=== PATIENT | female | born 1970 | race Caucasian/White ===

== ENCOUNTER 2019-10-13 14:42 | Outpatient (CLI) | payer OTHER, SELFPAY ==
--- NOTE | ~2019-10-13 | XR_ITS ---
EXAMINATION: XR chest 2V DATE: 10/13/2019 15:07 INDICATION: Fever and cough. TECHNIQUE: Frontal and lateral views of the chest were obtained. COMPARISON: Chest 2 views 09/16/2009 FINDINGS: There is mild scarring at the lung apices. No pleural effusion or pneumothorax. The heart s ize is normal. IMPRESSION: 1. Mild scarring at the lung apices. Reviewed, dictated and finalized at location A. WINDER
== END 2019-10-13 14:43 | disposition home or self-care (01) ==
LOC: CHSLAB 14:48
PROVIDERS: PCP Nurse Practitioner Family; Visit Provider Nurse Practitioner Family
DX: R50.9 Fever, unspecified (principal)
CPT/HCPCS: 71046; 87086

== ENCOUNTER 2020-05-07 07:13 | Outpatient (CLI) | payer OTHER, SELFPAY ==
[2020-05-10 05:53] LABS: FSH 32.6 mIU/mL (***)
[2020-05-12 23:57] LABS: Estradiol, Ultrasensitive 32 pg/mL
== END 2020-05-07 07:14 | disposition home or self-care (01) ==
LOC: CHSLAB 07:19
PROVIDERS: PCP Nurse Practitioner Family
DX: N95.1 Menopausal and female climacteric states (principal)
CPT/HCPCS: 36415; 82670; 83001

== ENCOUNTER 2020-07-14 14:07 | Outpatient (CLI) | payer OTHER, SELFPAY ==
--- NOTE | ~2020-07-14 | US_ITS ---
EXAMINATION: US venous doppler LE RT DATE: 07/14/2020 15:02 INDICATION: Right lower limb pain TECHNIQUE: Grayscale ultrasound images without and with compression and Doppler ultrasound images of the right lower extremity veins were obtained. COMPARISON: None. FINDINGS: The visualized portions of right common femoral vein, profunda (deep) femoral vein, femoral vein, pop liteal vein, peroneal trunk, posterior tibial veins, peroneal veins, gastrocnemius vein and greater s aphenous vein outflow are patent. IMPRESSION: 1. No deep venous thrombosis in the right lower limb. Reviewed, dictated and finalized at location A. OR ENGINEERING TECHNICIAN
[2020-07-14 14:31] LABS: D Dimer 0.37 mg/L (0.19-0.50)
== END 2020-07-14 14:08 | disposition home or self-care (01) ==
PROVIDERS: PCP Nurse Practitioner Family; Visit Provider Nurse Practitioner Family
DX: M79.661 Pain in right lower leg (principal); R60.0 Localized edema
CPT/HCPCS: 36415; 85380; 93971

== ENCOUNTER 2020-07-25 09:13 | Outpatient (CLI) | payer OTHER, SELFPAY ==
[2020-07-26 19:47] LABS: SARS-CoV-2 RNA PCR Negative
== END 2020-07-25 09:14 | disposition home or self-care (01) ==
LOC: CHSLAB 09:14
PROVIDERS: PCP Nurse Practitioner Family; Visit Provider Nurse Practitioner Family
DX: Z20.828 Contact with and (suspected) exposure to other viral communicable diseases (principal)
CPT/HCPCS: 87635; C9803; U0003

== ENCOUNTER 2021-02-16 07:51 | Outpatient (CLI) | payer OTHER, SELFPAY ==
--- NOTE | ~2021-02-16 | US_ITS ---
EXAMINATION:US venous doppler LE RT INDICATION:Right lower extremity swelling TECHNIQUE: Multiple grayscale, color flow and Doppler images of the right lower extremity deep venous systems were obtained and reviewed. COMPARISON:No prior studies for comparison. FINDINGS: The common femoral, superficial femoral and popliteal veins demonstrate normal respiratory variation, augmentation and compressibility. Color flow is also seen within the posterior tibial, pe roneal, greater saphenous and profunda veins. IMPRESSION: 1: No lower extremity deep venous thrombosis. Reviewed, dictated and finalized at location B.
== END 2021-02-16 07:52 | disposition home or self-care (01) ==
LOC: CHSIMG 07:52
PROVIDERS: PCP Nurse Practitioner Family; Visit Provider Nurse Practitioner Family
DX: M79.89 Other specified soft tissue disorders (principal)
CPT/HCPCS: 93971

== ENCOUNTER 2021-09-06 12:38 | Outpatient (CLI) | payer OTHER, SELFPAY ==
--- NOTE | ~2021-09-06 | US_ITS ---
EXAMINATION: US venous doppler [facility] DATE: 09/06/2021 13:08 INDICATION: Left lower limb pain. Possible Sanchez's cyst TECHNIQUE: Grayscale ultrasound images without and with compression and Doppler ultrasound images of the left lower extremity veins were obtained. COMPARISON: None. FINDINGS: The visualized portions of left common femoral vein, profunda (deep) femoral vein, femoral vein, popl iteal vein, peroneal veins, posterior tibial veins, gastrocnemius vein and greater saphenous vein out flow are patent. No Sanchez's cyst or other abnormal masses or fluid collections identified at the left popliteal fossa. IMPRESSION: 1. No deep venous thrombosis or evident Sanchez's cyst in the left lower limb. Reviewed, dictated and finalized at location A. ICAL BIOCHEMIST
== END 2021-09-06 12:39 | disposition home or self-care (01) ==
LOC: CHSIMG 12:41
PROVIDERS: PCP Nurse Practitioner Family; Visit Provider Nurse Practitioner Family
DX: M25.562 Pain in left knee (principal)
CPT/HCPCS: 93971

== ENCOUNTER 2021-11-27 13:11 | Outpatient (CLI) | payer OTHER, SELFPAY ==
--- NOTE | ~2021-11-27 | MM_ITS ---
EXAMINATION: MM screening lexi BI w bernard HISTORY: Screening mammogram TECHNIQUE: Craniocaudal and mediolateral oblique 3-D tomosynthesis images were obtained and synthetic 2-D images were generated. CAD analysis was submitted and interpreted. COMPARISON: No prior mammogram is available for comparison at this institution. BREAST PARENCHYMAL COMPOSITION: The breasts are heterogeneously dense, which may obscure small masses . FINDINGS: There is no evidence of suspicious mass, calcification, or architectural distortion to sugg est malignancy in either breast. There has been no suspicious interval change. IMPRESSION: 1. No mammographic evidence of malignancy. 2. Recommend routine screening mammography in one year. BI-RADS Category 1: Negative Reviewed, dictated and finalized at location A.
== END 2021-11-27 13:12 | disposition home or self-care (01) ==
LOC: CHSIMG 13:13
PROVIDERS: PCP Nurse Practitioner Family; Visit Provider Nurse Practitioner Family
DX: Z12.31 Encounter for screening mammogram for malignant neoplasm of breast (principal)
CPT/HCPCS: 77063; 77067

== ENCOUNTER 2021-12-01 12:17 | Outpatient (CLI) | payer OTHER, SELFPAY ==
--- NOTE | ~2021-12-01 | US_ITS ---
EXAMINATION: US soft tissue head and neck DATE: 12/01/2021 12:36 INDICATION: Localized swelling, mass and lump at the neck TECHNIQUE: Multiple grayscale and Doppler ultrasound images of the region of concern at the anterior midline of the neck were obtained. COMPARISON: None FINDINGS: 9 mm rim calcified right thyroid nodule. There also appears to be an 8 x 5 mm solid exophytic nodule arising from the anterior margin of the thyroid isthmus. Normal-sized right jugular chain lymph node identified which measures 4 mm in maximal short axis diameter. No other abnormal masses or fluid denis ections identified. IMPRESSION: 1. A couple likely benign subcentimeter nodules at the right thyroid lobe and thyroid isthmus. No oth er abnormal masses, fluid collections or pathologically enlarged lymphadenopathy. Reviewed, dictated and finalized at location A. IMPRESSION: 1. A couple likely benign subcentimeter nodules at the right thyroid lobe and t hyroid isthmus. No other abnormal masses, fluid collections or pathologically e nlarged lymphadenopathy.
== END 2021-12-01 12:18 | disposition home or self-care (01) ==
LOC: CHSIMG 12:19
PROVIDERS: PCP Nurse Practitioner Family; Visit Provider Nurse Practitioner Family
DX: R22.1 Localized swelling, mass and lump, neck (principal)
CPT/HCPCS: 76536

== ENCOUNTER 2021-12-06 07:20 | Outpatient (CLI) | payer OTHER, SELFPAY ==
[2021-12-06 07:32] LABS: Basophils Absolute Auto 0.07 K/mm3 (0.00-0.10); Basophils Percent Auto 1.2 % (0.0-1.0); Eosinophils Absolute Auto 0.21 K/mm3 (0.02-0.50); Eosinophils Percent Auto 3.7 % (1.0-6.0); Hematocrit 42.7 % (35.0-49.0); Immature Granulocyte Absolute 0.04 K/mm3 (0.00-0.00); Immature Granulocyte Percent A 0.7 % (0.0-0.0); Lymphocytes Absolute Auto 2.32 K/mm3 (1.10-4.50); Lymphocytes Percent Auto 41.2 % (18.0-42.0); Mean Corpuscular HGB Conc 32.8 g/dL (32.0-36.0); Mean Corpuscular Hemoglobin 29.7 pg (27.0-31.0); Mean Corpuscular Volume 90.5 fL (78.0-102.0); Mean Platelet Volume 10.2 fl (9.2-11.8); Monocytes Absolute Auto 0.43 K/mm3 (0.10-0.90); Monocytes Percent Auto 7.6 % (2.0-11.0); Neutrophils Absolute Auto 2.6 K/mm3 (1.7-7.2); Neutrophils Percent Auto 45.6 % (50.0-70.0); Platelet Count Result 267 K/mm3 (150-420); Red Blood Count 4.72 M/mm3 (4.20-5.40); Red Cell Distribution Width 12.1 % (11.6-14.4); White Blood Count 5.6 K/mm3 (4.8-10.8)
[2021-12-06 08:10] LABS: Alanine Aminotransferase 22 U/L (14-59); Albumin Level 4.4 g/dL (3.4-5.0); Alkaline Phosphatase 62 U/L (46-116); Anion Gap 7 mmol/L (8-16); Aspartate Amino Transferase 12 U/L (15-37); Bilirubin,Total 0.9 mg/dL (0.00-1.00); Blood Urea Nitrogen 17 mg/dL (7-18); Calcium 9.5 mg/dL (8.5-10.1); Carbon Dioxide 32 mmol/L (21-32); Chloride 103 mmol/L (98-108); Cholesterol 146 mg/dL (0-200); Estimated Glomerular Filt Rate 57; Glucose 100 mg/dL (70-99); HDL Direct 53 mg/dL (40-60); LDL Cholesterol Calculated 75 mg/dL (<130); Magnesium 1.9 mg/dL (1.8-2.4); Osmolality Calculated 295 mOsm/kg (285-295); Sodium 142 mmol/L (136-145); Thyroid Stimulating Hormone 2.21 uIU/mL (0.36-3.74); Total Protein 7.4 g/dL (6.4-8.2); Triglycerides 92 mg/dL (0-150)
[2021-12-12 14:05] LABS: Vitamin D 25 Hydroxy 26 ng/mL (30-100)
[2021-12-13 21:06] LABS: Estradiol, Ultrasensitive 6 pg/mL
== END 2021-12-06 07:21 | disposition home or self-care (01) ==
LOC: CHSLAB 07:22
PROVIDERS: PCP Nurse Practitioner Family; Visit Provider Nurse Practitioner Family
DX: R63.5 Abnormal weight gain (principal); E83.42 Hypomagnesemia
CPT/HCPCS: 36415; 80053; 80061; 82306; 82670; 83735; 84443; 85025

== ENCOUNTER 2022-10-26 07:53 | Outpatient (CLI) | payer OTHER, SELFPAY ==
[2022-10-26 14:50] LABS: Troponin I 5.4 ng/L (0.00-60.4)
[2022-10-26 14:57] LABS: Thyroid Stimulating Hormone Reflex 1.17 u/IU/mL (0.36-3.74)
[2022-10-26 15:02] LABS: CRP < 0.5 mg/dL (0.0-0.9)
[2022-10-30 11:07] LABS: Gliadin AB, IgG <1.0 U/mL (<15.0); TTG IGA AB <1.0 U/mL (<15.0)
[2022-10-30 18:18] LABS: Lactoferrin, Stool Negative (Negative)
== END 2022-10-26 07:54 | disposition home or self-care (01) ==
PROVIDERS: Family Medicine; PCP Nurse Practitioner Family; Visit Provider Nurse Practitioner Family
DX: R07.9 Chest pain, unspecified (principal); E11.9 Type 2 diabetes mellitus without complications; R19.7 Diarrhea, unspecified
CPT/HCPCS: 36415; 83516; 83630; 84443; 84484; 86140; 86255; 87045; 87177; 87209; 87427; 87493

== ENCOUNTER 2022-10-27 08:27 | Outpatient (CLI) | payer OTHER, SELFPAY ==
[2022-10-30 18:18] LABS: Lactoferrin, Stool Positive (Negative)
== END 2022-10-27 08:28 | disposition home or self-care (01) ==
LOC: CHSLAB 08:28
PROVIDERS: PCP Nurse Practitioner Family; Visit Provider Nurse Practitioner Family
DX: R19.7 Diarrhea, unspecified (principal); R07.9 Chest pain, unspecified
CPT/HCPCS: 83630

== ENCOUNTER 2022-10-30 07:46 | Outpatient (CLI) | payer OTHER, SELFPAY ==
--- NOTE | ~2022-10-30 | US_ITS ---
US abdomen limited INDICATION: Right upper abdominal pain.. PROCEDURE: Realtime right upper abdominal ultrasound. COMPARISON: No prior studies for comparison. FINDINGS: The pancreas is normal without focal mass or pancreatic ductal dilation. Liver echotexture is increased, consistent with fatty infiltration. There is a hypoechoic area adjacent to the gallbla dder, most likely focal fatty sparing. There is normal directional flow in the portal vein. The gallbladder is normal without stones, gallbladder wall thickening or pericholecystic fluid. Comm on bile duct measures 3 mm. No sonographic Gutierrez's sign. IMPRESSION: 1: Hepatic steatosis. Reviewed, dictated and finalized at location L. ON FIRE DIRECTION SPECIALIST IMPRESSION: 1: Hepatic steatosis.
== END 2022-10-30 07:47 | disposition home or self-care (01) ==
LOC: CHSIMG 07:47
PROVIDERS: PCP Nurse Practitioner Family; Visit Provider Family Medicine
DX: R10.11 Right upper quadrant pain (principal); K76.0 Fatty (change of) liver, not elsewhere classified
CPT/HCPCS: 76705

== ENCOUNTER 2023-02-27 08:31 | Outpatient (CLI) | payer OTHER, SELFPAY ==
--- NOTE | ~2023-02-27 | MM_ITS ---
EXAMINATION: MM screening lexi BI w bernard HISTORY: Screening mammogram TECHNIQUE: Craniocaudal and mediolateral oblique 3-D tomosynthesis images were obtained and synthetic 2-D images were generated. CAD analysis was submitted and interpreted. COMPARISON: 11/27/2021 bilateral screening mammogram BREAST PARENCHYMAL COMPOSITION: The breasts are heterogeneously dense, which may obscure small masses . FINDINGS: There is no evidence of suspicious mass, calcification, or architectural distortion to sugg est malignancy in either breast. There has been no suspicious interval change. IMPRESSION: 1. No mammographic evidence of malignancy. 2. Recommend routine screening mammography in one year. BI-RADS Category 1: Negative Reviewed, dictated and finalized at location A.
== END 2023-02-27 08:32 | disposition home or self-care (01) ==
LOC: CHSIMG 08:32
PROVIDERS: PCP Nurse Practitioner Family; Visit Provider Nurse Practitioner Family
DX: Z12.31 Encounter for screening mammogram for malignant neoplasm of breast (principal)
CPT/HCPCS: 77063; 77067

== ENCOUNTER 2023-08-27 13:38 | Outpatient (RCR) | payer OTHER, SELFPAY ==
[2023-08-27 13:54] VITALS: BP_SYST 159
--- NOTE | 2023-08-27 15:22 | OPREHPOC ---
Outpatient Therapy Plan of Care This is a Multidisciplinary Plan of Care that may contain components documented by all disciplines (PT, OT, and ST.) PT Problem 1 PT Problem #1 Knowledge Deficit PT Goal 1 Goal Patient to demonstrate independence with HEP Target Visit 4 PT Problem 2 PT Problem #2 Pain PT Goal 1 Goal Patient to report highest pain at 2/10 Target Visit 8 PT Problem 3 PT Problem #3 Impaired Range of Motion PT Goal 1 Goal Patient to demonstrate 160 deg of L shoulder flexion and 60 deg of L shoulder ER to return to dressing and house hold tasks at PLOF Target Visit 8 PT Problem 4 PT Problem #4 Impaired Strength PT Goal 1 Goal Patient to demonstrate 5/5 strength of the L UE to return to lifting overhead for house hold chores Target Visit 8 PT Problem 5 PT Problem #5 Impaired Functional Mobil PT Goal 1 Goal 1. Patient to report ability to sleep in bed 2. Patient to report ability to don coat without increase in L shoulder pain 3. Patient to report ability to complete house hold tasks with no L shoulder pain Target Visit 8
--- NOTE | 2023-08-27 15:22 | PTOPEVAL1 ---
Assessment and note entered by Kimber Tong DPT Evaluation Information Assessment Status Evaluation Diagnosis L shoulder pain Onset 08/15/23 Subjective Information Patient reports she has been have L shoulder pain for the past months and does not recall an injury. She reports pain is at the back of the shoulder and will travel into the neck. She reports she has been unabe to sleep in bed due to pain. She reports she has difficulty with reaching back while in the car. She She has difficulty with lifting, reaching and all recreational activity. She reports since onset of pain, pain has gotten worse. 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 Reported Pain Level Pain Score 6: Self Report Assessment PT Clinical Summary Patient is 52 year old female who presents to PT with L shoulder pain. Patient demonstrates decreased L shoulder strength and ROM as well as positive testing indicating positive rotator cuff involvement impairing her ability to sleep, complete house hold tasks and dress. She would benefit from MRI of the L shoulder to determine involvement of the rotator cuff as well as skilled PT to address impairments and return to PLOF. Plan of Care Interventions Electrical Stimulation,Hot Pack/Cold Pack,Manual Therapy,Mechanical Traction,Neuro Re-education, Patient/Caregiver Educati,Therapeutic Activities, Therapeutic Exercise PT Services Indicated Yes Treatment Frequency and 2x weekly for 8 visits Duration These treatments will address the objective and functional deficits as defined above. The patient will be advanced safely and appropriately in order for the patient to progress towards his/her prior level of function. Additional exercises will be introduced and as well as a comprehensive home exercise program upon discharge, if needed, ?to ensure carryover of functional gains achieved in the clinic. This treatment plan has been reviewed and agreement upon by the patient.
--- NOTE | 2023-09-17 17:32 | PCPTNOTE ---
attempted contact with doctors office leaving a message to get back with status of MRI referral.
--- NOTE | 2023-09-19 09:00 | PCPTNOTE ---
no call, no show
--- NOTE | 2023-11-28 08:27 | PCPTNOTE ---
patient discharged to return to MD regarding MRI
--- NOTE | 2023-12-12 14:36 | PCPTNOTE ---
patient DC to follow up with MRI
== END 2023-09-17 23:59 | disposition home or self-care (01) ==
LOC: CHSPT 13:38
PROVIDERS: PCP Nurse Practitioner Family; Visit Provider Nurse Practitioner Family
DX: M25.512 Pain in left shoulder (principal)
CPT/HCPCS: 97014; 97110; 97140; 97161; G0283

== ENCOUNTER 2023-10-03 07:37 | Outpatient (CLI) | payer OTHER, SELFPAY ==
--- NOTE | ~2023-10-03 | MR_ITS ---
MRI of the left shoulder Technique: Axial proton-density fat-sat images, coronal proton density fat-sat and T2 fat-sat images, and sagittal T1-weighted and T2 fat-sat images were acquired. Clinical History: Pain Findings: AC joint is intact, with no significant degenerative change. Coracoclavicular, coracoacromi al, and coracohumeral ligaments appear intact. Supraspinatus and infraspinatus tendons are intact, without partial or full-thickness tear. Subscapul dain tendon is intact, with mild tendinosis. Tendon of long head of the biceps is intact. Glenoid labrum is intact, without evidence of tear. Inferior glenohumeral ligament is mildly thickened and hyperintense. There is no effusion or degenera tive change of the glenohumeral joint. No fluid distention of the subacromial/subdeltoid bursa. No mu scle atrophy or edema. Impression: Thickening and increased signal of the inferior glenohumeral ligament suggests adhesive capsulitis. Minimal rotator cuff tendinosis. Reviewed, dictated and finalized at location M. MASTER Impression: Thickening and increased signal of the inferior glenohumeral ligament suggests adhesive capsulitis. Minimal rotator cuff tendinosis.
== END 2023-10-03 07:38 | disposition home or self-care (01) ==
LOC: CHSIMG 07:39
PROVIDERS: PCP Nurse Practitioner Family; Visit Provider Nurse Practitioner Family
DX: M77.8 Other enthesopathies, not elsewhere classified (principal); M25.512 Pain in left shoulder
CPT/HCPCS: 73221

== ENCOUNTER 2024-03-04 07:55 | Outpatient (CLI) | payer OTHER, SELFPAY ==
--- NOTE | ~2024-03-04 | MM_ITS ---
EXAMINATION: MM screening lexi BI w bernard HISTORY: Screening mammogram TECHNIQUE: Craniocaudal and mediolateral oblique 3-D tomosynthesis images were obtained and synthetic 2-D images were generated. CAD analysis was submitted and interpreted. COMPARISON: 02/27/2023, 11/27/2021 BREAST PARENCHYMAL COMPOSITION:Dense: The breasts are heterogeneously dense, which may obscure small masses. FINDINGS: No suspicious mass, calcification, or architectural distortion are identified in either bob ast to suggest malignancy. There has been no suspicious interval change. IMPRESSION: No mammographic evidence of malignancy. Recommend routine screening mammography in one year. BI-RADS Category 1: Negative Reviewed, dictated and finalized at location .
== END 2024-03-04 07:56 | disposition home or self-care (01) ==
LOC: CHSIMG 07:56
PROVIDERS: PCP Nurse Practitioner Family; Visit Provider Nurse Practitioner Family
DX: Z12.31 Encounter for screening mammogram for malignant neoplasm of breast (principal)
CPT/HCPCS: 77063; 77067

== ENCOUNTER 2024-09-23 07:04 | Outpatient (CLI) | payer OTHER, SELFPAY ==
--- NOTE | 2024-09-23 07:21 | ECG_ITS ---
Test Date: 2024-09-23 07:30:46 Measurements Intervals [place] Rate: 72 P: 66 KS: 177 QRS: 88 QRSD: 88 T: 48 QT: 360 QTc: 396 Interpretive Statements SINUS RHYTHM LOW QRS VOLTAGE IN PRECORDIAL LEADS [QRS DEFLECTION < 1.0 mV IN CHEST LEADS] No previous ECG available for comparison Electronically Signed On 09-23-2024 14:14:25 CREDIT REPORTER by Chana Hardy M.D.
[2024-09-23 07:24] LABS: Add Urine Microscopic? YES; Appearance Urine Clear (Clear); Basophils Absolute Auto 0.07 K/mm3 (0.00-0.10); Basophils Percent Auto 1.3 % (0.0-1.0); Bilirubin Urine Negative (Negative); Blood Urine Trace-intact (Negative); Color Urine Light Yellow (Yellow); Eosinophils Absolute Auto 0.18 K/mm3 (0.02-0.50); Eosinophils Percent Auto 3.4 % (1.0-6.0); Glucose Urine UA Negative (Negative); Hematocrit 41.7 % (35.0-49.0); Hemoglobin 13.5 g/dL (12.0-15.0); Immature Granulocyte Absolute 0.02 K/mm3 (0.00-0.00); Immature Granulocyte Percent A 0.4 % (0.0-0.0); Ketones Urine Negative (Negative); Leukocyte Esterase Ur Negative LEU/UL (Negative); Lymphocytes Absolute Auto 2.01 K/mm3 (1.10-4.50); Lymphocytes Percent Auto 37.9 % (18.0-42.0); Mean Corpuscular HGB Conc 32.4 g/dL (32-36); Mean Corpuscular Hemoglobin 28.3 pg (27.0-31.0); Mean Corpuscular Volume 87.4 fL (78.0-102.0); Mean Platelet Volume 10.3 fl (9.2-11.8); Monocytes Absolute Auto 0.37 K/mm3 (0.10-0.90); Neutrophils Absolute Auto 2.66 K/mm3 (1.70-7.20); Nitrate Urine Negative (Negative); Platelet Count Result 277 K/mm3 (150-420); Protein Urine 1+ (Negative); Red Blood Count 4.77 M/mm3 (4.20-5.40); Red Cell Distribution Width 12.3 % (11.6-14.4); Urobilinogen Urine 0.2 mg/dL (0.2-1.0); White Blood Count 5.3 K/mm3 (4.8-10.8); pH Urine 6.5 (5.0-8.0)
[2024-09-23 07:32] LABS: RBC Urine 0-2 /hpf (0-2)
[2024-09-23 07:33] LABS: Squamous Epithelial Cell Urine Moderate /hpf (Few); WBC Urine 0-3 /hpf (0-3)
[2024-09-23 07:34] LABS: Bacteria Urine 3+ /hpf
[2024-09-23 08:11] LABS: Alanine Aminotransferase 24 U/L (14-59); Albumin Level 4.4 g/dL (3.4-5.0); Alkaline Phosphatase 75 U/L (46-116); Amylase 38 U/L (25-115); Anion Gap 8 mmol/L (4-12); Aspartate Amino Transferase 12 U/L (15-37); Bilirubin,Total 0.9 mg/dL (0.00-1.00); Blood Urea Nitrogen 15 mg/dL (7-18); Calcium 9.4 mg/dL (8.5-10.1); Carbon Dioxide 31 mmol/L (21-32); Chloride 103 mmol/L (98-108); Estimated Glomerular Filt Rate 54; Glucose 110 mg/dL (70-99); Lipase 31 U/L (16-77); Osmolality Calculated 295 mOsm/kg (285-295); Potassium 4.6 mmol/L (3.5-5.1); Sodium 142 mmol/L (136-145); Total Protein 7.3 g/dL (6.4-8.2)
== END 2024-09-23 07:05 | disposition home or self-care (01) ==
LOC: CHSLAB 07:06
PROVIDERS: PCP Nurse Practitioner Family; Visit Provider Nurse Practitioner Family
DX: R10.13 Epigastric pain (principal); Z87.898 Personal history of other specified conditions
CPT/HCPCS: 36415; 80053; 81001; 82150; 83690; 85025; 93005

== ENCOUNTER 2025-04-02 10:15 | Outpatient (CLI) | payer OTHER, SELFPAY ==
--- NOTE | ~2025-04-02 | MM_ITS ---
EXAMINATION: MM screening lexi BI w bernard HISTORY: Screening TECHNIQUE: Craniocaudal and mediolateral oblique 3-D tomosynthesis images were obtained and synthetic 2-D images were generated. CAD analysis was submitted and interpreted. COMPARISON: Comparison to multiple prior studies sequentially, with oldest reviewed study dated 11/27. BREAST PARENCHYMAL COMPOSITION: Dense: The breasts are heterogeneously dense, which may obscure small masses FINDINGS: There is no evidence of suspicious mass, calcification, or architectural distortion to sugg est malignancy in either breast. There has been no suspicious interval change. IMPRESSION: 1. No mammographic evidence of malignancy. 2. Recommend routine screening mammography in one year. BI-RADS Category 1: Negative Reviewed, dictated and finalized at location A.
--- OUTSIDE RECORDS SUMMARY | 2025-04-02 10:19 | XMS_ITS | Clinical Summary ---
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 Gender Identity Not on file Sexual Orientation Not on file Plan of Treatment Health Maintenance Due Date Last Done Comments DTAP/TDAP/TD VACCINES (1 - Tdap) 1990 HEPATITIS B VACCINES (1 of 3 - 19+ 3-dose series) 11/1990 HPV/Cotest (21-29) 1992 HPV/Cotest (30-65) 2001 CERVICAL CANCER SCREENING 08/27/2010 PAP SMEAR 08/27/2010 08/27/2007 BREAST CANCER SCREENING 2011 COLORECTAL SCREENING 2016 Colorectal Cancer Screening 2016 FIT-DNA Q 3 years 2016 FIT/FOBT Q 1 year 2016 Flex Sig/CT Colonography Q 5 years 2016 ZOSTER VACCINE (1 of 2) 2021 INFLUENZA VACCINE (#1) 2025 Care Teams Groundskeeping Maintenance Relationship Specialty Start Date End Date Christopher Crenshaw MD [address] [facility] [address] [place] [address] PCP - General 01/29/06
--- OUTSIDE RECORDS SUMMARY | 2025-04-02 10:19 | XMS_ITS | Encounter Summary ---
Author Organization [facility] Address 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 Gender Identity Not on file Sexual Orientation Not on file documented as of this encounter Plan of Treatment Not on file documented as of this encounter Procedures Procedure Name Priority Date/Time Associated Diagnosis Comments CANCER ANTIGEN 19-9 Routine 01/13/2007 1 1:20 AM CDT ALPHA FETOPROTEIN TUMOR MARKER Routine 01/13/2007 11:20 AM CDT CBC WITH DIFFERENTIAL Routine 01/13/2007 11:20 AM CDT CBC WITH DIFFERENTIAL Routine 01/13/2007 11:20 AM CDT COMPREHENSIVE METABOLIC PANEL Routine 01/13/2007 11:20 AM CDT documented in this encounter Results * CANCER ANTIGEN 19-9 (01/13/2007 11:20 AM CDT) Pathologist [facility] CA 19-9 9 <37 U/mL INTERFACE SYSTEM Comment: THIS TEST WAS PERFORMED USING THE ISHMAEL CHEMILUMINESCENT METHOD. VALUES FROM DIFFERENT ASSAY METHODS CANNOT BE USED INTERCHANGEABLY BECAUSE THE CONCENTRATION OF CA 19-9 IN ANY GIVEN SPECIMEN CAN VARY DUE TO DIFFERENCES IN ASSAY METHODS AND REAGENT SPECIFICITY. SERUM CA 19-9 LEVELS, REGARDLESS OF VALUE, SHOULD NOT BE INTERPRETED ABSOLUTE EVIDENCE OF THE PRESENCE OR ABSENCE OF MALIGNANT DISEASE. Lab test performed by: [facility] [address] [place] [address] DR CHNAO ALEMAN 01/13/2007 11:2 0 AM CDT Ancelmo Guidry MD CHEMISTRY ORDERABLES Edited Performing Organization Address [facility] Phone Number INTERFACE SYSTEM Refer to clinic/hospital department * ALPHA FETOPROTEIN TUMOR MARKER (01/13/2007 11:20 AM CDT) [facility] ALPHA FETOPROTEIN TUMOR MARKER 1.5 ng/mL INTERFACE SYSTEM Comment: This test was performed using the DPC Immulite 2000 Assay. REFERENCE RANGE: <6.1 THE USE OF AFP A TUMOR MARKER IN FEMALES IS NOT RECOMMENDED. Lab test performed by: [facility] [place] [address] [place] [address] [address] CHANO ALEMAN MD 01/13/2007 11:2 0 AM CDT Ancelmo Guidry MD CHEMISTRY ORDERABLES Edited Performing Organization Address [facility] de Phone Number INTERFACE SYSTEM Refer to clinic/hospital department * CBC WITH DIFFERENTIAL (01/13/2007 11:20 AM CDT) Pathologist [facility] NEUTROPHILS 62 45 - 70 % INTERFAC E SYSTEM LYMPHOCYTES 31 16 - 45 % INTERFAC E SYSTEM MONOCYTES 5 3 - 13 % INTERFACE SYSTEM EOSINOPHILS 1 0 - 7 % INTERFAC E SYSTEM BASOPHILS 0 0 - 2 % INTERFACE SYSTEM NEUTROPHIL ABSOLUTE 3.14 1.90 - 7.00 K/uL INTERFACE SYSTEM LYMPHOCYTE ABSOLUTE 1.56 0.70 - 4.50 K/uL INTERFACE SYSTEM MONOCYTE ABSOLUTE 0.27 0.10 - 1.30 K/uL INTERFACE SYSTEM EOSINOPHIL ABSOLUTE 0.04 0.00 - 0.70 K/uL INTERFACE SYSTEM BASOPHILS ABSOLUTE 0.02 0.00 - 0.20 K/uL INTERFACE SYSTEM 01/13/2007 11:2 0 AM CDT Ancelmo Guidry MD HEMATOLOGY ORDERABLES Edited Performing Organization Address [facility] de Phone Number INTERFACE SYSTEM Refer to clinic/hospital department * CBC WITH DIFFERENTIAL (01/13/2007 11:20 AM CDT) WBC 5.0 4.0 - 9.8 K/uL INTERFACE SYSTEM RBC 4.42 3.90 - 4.90 M/uL INTERFACE SYSTEM HEMOGLOBIN 12.7 11.8 - 14.8 g/dL INTERFACE SYSTEM HEMATOCRIT 37.4 35.5 - 44.0 % INTERFACE SYSTEM MCV 84.6 82.0 - 99.0 fL INTERFACE SYSTEM MCH 28.7 27.2 - 32.6 pg INTERFACE SYSTEM MCHC 34.0 31.5 - 35.5 % INTERFACE SYSTEM RDW 12.9 11.5 - 14.5 % INTERFACE SYSTEM RDW-STDEV 39.4 37.1 - 48.7 fL INTERFACE SYSTEM PLATELETS 205 140 - 350 K/uL INTERFACE SYSTEM MPV 11.3 9.3 - 12.4 fL INTERFACE SYSTEM 01/13/2007 11:2 0 AM CDT Ancelmo Guidry MD HEMATOLOGY ORDERABLES Edited Performing Organization Address [facility] de Phone Number INTERFACE SYSTEM Refer to clinic/hospital department * (ABNORMAL) COMPREHENSIVE METABOLIC PANEL (01/13/2007 11:20 AM CDT) GLUCOSE 92 65 - 99 mg/dL INTERFACE SYSTEM CREATININE 0.72 0.51 - 0.95 mg/dL INTERFACE SYSTEM CALCIUM 8.8 8.4 - 10.2 mg/dL INTERFACE SYSTEM ALKALINE PHOSPHATASE 54 35 - 104 U/L INTERFACE SYSTEM AST 12 12 - 32 U/L INTERFACE SYSTEM ALT 13 0 - 31 U/L INTERFACE SYSTEM TOTAL PROTEIN 7.8 6.3 - 8.6 g/dL INTERFACE SYSTEM ALBUMIN 4.7 3.4 - 4.8 g/dL INTERFACE SYSTEM BILIRUBIN TOTAL 1.1(H) 0.2 - 1.0 mg/dL INTERFACE SYSTEM BUN 11 6 - 20 mg/dL INTERFACE SYSTEM SODIUM 138 135 - 145 mmol/L INTERFACE SYSTEM POTASSIUM 3.9 3.5 - 4.9 mmol/L INTERFACE SYSTEM CHLORIDE 102 96 - 108 mmol/L INTERFACE SYSTEM CO2 26 22 - 30 mmol/L INTERFACE SYSTEM GFR, >60 >=60 mL/min/1. 7 sq meter INTERFACE SYSTEM GFR >60 >=60 mL/min/1. 7 sq meter INTERFACE SYSTEM Comment: Estimated GFR rate interpretative information for both Americans and non- Americans is available on the [facility] Intranet at: [email or web address] Select: Lab Policies and Procedures Select: Reference Ranges - GFR 01/13/2007 11:2 0 AM CDT us Ancelmo Guidry MD CHEMISTRY ORDERABLES Edited INTERFACE SYSTEM Refer to clinic/hospital department documented in this encounter Visit Diagnoses Diagnosis Hepatomegaly- Primary documented in this encounter Care Teams Quilting Supervisor Relationship Specialty Start Date End Date Christopher Crenshaw MD [address] [facility] [address] [place] [phone] PCP - General 01/29/06 documented as of this encounter
--- OUTSIDE RECORDS SUMMARY | 2025-04-02 10:19 | XMS_ITS | Clinical Summary ---
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 Gender Identity Not on file Sexual Orientation Not on file Plan of Treatment Health Maintenance Due Date Last Done Comments Hepatitis C Virus (HCV) Screening 1971 TdaP Immunization 1971 Hepatitis B Immunization (1 of 3 - 19+ 3-dose series) 1990 Pap Smear 1992 Cervical Cancer Screening (CCS) 2001 HPV/Cotest 2001 Cologuard 2016 Colonoscopy 2016 Colorectal Cancer Screening 2016 Immunochemical Fecal Occult Blood 2016 Pneumococcal Immunization (5 0+ years) (1 of 1 - PCV) 2021 Zoster Immunization (1 of 2) 2021 SARS-COV-2 Immunization ( - 2023-25 season) 2024 Influenza Immunization (#1) 2025 Respiratory Syncytial Virus (RSV) Immunization (Adult) (1 - 1-dose 75+ series) 2046 Human Papillomavirus (HPV) Immunization Aged Out No longer eligible b ased on patient's age to complete this topic Meningococcal Immunization (ACWY) Aged Out No longer eligible based on patient's age to complete this topic Rotavirus Immunization Aged Out No lo nger eligible based on patient's age to complete this topic
--- OUTSIDE RECORDS SUMMARY | 2025-04-02 10:19 | XMS_ITS | Encounter Summary ---
Author Organization [facility] Address [address] [place] [address] Care Team Providers Care Form Builder Name Role Phone Christopher Crenshaw MD Primary Care Provider [phone] Encounter Details Date Type Department Care Team (Late st Contact Info) Description 11/12/2007 Outpatient Historical [facility] Ancelmo Hampton MD [address], [place] [id number] Social History Tobacco Use Types Packs/Day Years Used Date Smoking Tobacco: Never Assessed Comments Unknown Sex and Gender Information Value Date Recorded Sex Assigned at Not on file Legal Sex Female 3:17 AM WOOD GLUER Gender Identity Not on file Sexual Orientation Not on file documented as of this encounter Plan of Treatment Not on file documented as of this encounter Procedures Procedure Name Priority Date/Time Associated Diagnosis Comments CANCER ANTIGEN 19-9 Routine 11/12/2007 2 :06 PM WOOD GLUER ALPHA FETOPROTEIN TUMOR MARKER Routine 11/12/2007 2:06 PM WOOD GLUER CBC WITH DIFFERENTIAL Routine 11/12/2007 2:06 PM WOOD GLUER PROTIME-INR Routine 11/12/2007 2:06 PM WOOD GLUER COMPREHENSIVE METABOLIC PANEL Routine 11/12/2007 2:06 PM WOOD GLUER documented in this encounter Results * (ABNORMAL) COMPREHENSIVE METABOLIC PANEL (11/12/2007 2:06 PM WOOD GLUER) SODIUM 139 135 - 145 mmol/L [facility] ALT 21 0 - 31 U/L [facility] ALKALINE PHOSPHATASE 51 35 - 104 U/L [facility] BILIRUBIN TOTAL 1.1(H) 0.2 - 1.0 mg/dL [facility] CO2 28 22 - 30 mmol/L [facility] TOTAL PROTEIN 7.6 6.3 - 8.6 g/dL [facility] POTASSIUM 4.1 3.5 - 4.9 mmol/L [facility] GLUCOSE 87 65 - 99 mg/dL [facility] AST 14 12 - 32 U/L [facility] BUN 12 6 - 20 mg/dL [facility] CALCIUM 9.3 8.4 - 10.2 mg/dL [facility] CHLORIDE 102 96 - 108 mmol/L [facility] ALBUMIN 4.8 3.4 - 4.8 g/dL [facility] CREATININE 0.85 0.51 - 0.95 mg/dL [facility] GFR, >60 >=60 mL/min/1. 7 sq meter [facility] GFR >60 >=60 mL/min/1. 7 sq meter [facility] Comment: Estimated GFR rate interpretative information for both Americans and non- Americans is available on the [facility] Intranet at: [email or web address] Select: Lab Policies and Procedures Select: Reference Ranges - GFR Blood specimen (specimen) 11/12/2007 2:06 PM WOOD GLUER 11/12/2007 2:31 PM WOOD GLUER Narrative [facility] - 11/12/2007 3:04 PM WOOD GLUER fax results to Dr. Ancelmo Guidry [phone] Ancelmo Guidry MD CHEMISTRY ORDERABLES Edited Performing Organization Address [facility] Co de Phone Number [facility] [address] [place] [address] * CANCER ANTIGEN 19-9 (11/12/2007 2:06 PM WOOD GLUER) Pathologist [facility] CA 19-9 12 <37 U/mL [facility] Comment: THIS TEST WAS PERFORMED USING THE SIEMENS [employer]) CHEMILUMINESCENT METHOD. VALUES OBTAINED FROM DIFFERENT ASSAY METHODS CANNOT BE USED INTERCHANGEABLY. CA 19-9 LEVELS, REGARDLESS OF VALUE, SHOULD NOT BE INTERPRETED ABSOLUTE EVIDENCE OF THE PRESENCE OR ABSENCE OF DISEASE. Lab test performed by: [employer] [id number] CHANO ALEMAN MD Blood specimen (specimen) 11/12/2007 2:06 PM WOOD GLUER 11/12/2007 2:31 PM WOOD GLUER Narrative [facility] - 11/13/2007 8:09 AM WOOD GLUER fax results to Dr. Ancelmo Guidry [phone] Ancelmo Guidry MD CHEMISTRY ORDERABLES Final Resu lt Performing Organization Address [facility] Co de Phone Number [facility] [address] [place] [address] * ALPHA FETOPROTEIN TUMOR MARKER (11/12/2007 2:06 PM WOOD GLUER) [facility] ALPHA FETOPROTEIN TUMOR MARKER 1.3 ng/mL [facility] Comment: REFERENCE RANGE: <6.1 THE USE OF AFP A TUMOR MARKER IN FEMALES IS NOT RECOMMENDED. THIS TEST WAS PERFORMED USING THE SIEMENS ([employer]) CHEMILUMINESCENT METHOD. VALUES OBTAINED FROM DIFFERENT ASSAY METHODS CANNOT BE USED INTERCHANGEABLY. AFP LEVELS, REGARDLESS OF VALUE, SHOULD NOT BE INTERPRETED ABSOLUTE EVIDENCE OF THE PRESENCE OR ABSENCE OF DISEASE. Lab test performed by: [employer] [facility] [id number] CHANO ALEMAN MD This test was performed using the [employer] Immulite 2000 Assay. Blood specimen (specimen) 11/12/2007 2:06 PM WOOD GLUER 11/12/2007 2:31 PM WOOD GLUER Narrative INTERFACE SYSTEM - 11/13/2007 11:05 AM WOOD GLUER fax results to Dr. Ancelmo Guidry [phone] results faxed 11/13/07 11:05 AM dl us Ancelmo Guidry MD CHEMISTRY ORDERABLES Edited Performing Organization Address [facility] de Phone Number INTERFACE SYSTEM Refer to clinic/hospital department [facility] [address] [place] [address] * PROTIME-INR (11/12/2007 2:06 PM WOOD GLUER) PROTIME 14.2 12.7 - 15.1 Seconds [facility] INR 1.1 0.9 - 1.1 [facility] Comment: INR Therapeutic Range: Adult: 2.0 - 3.0 for pulmonary embolism or prophylaxis against venous thrombosis or systemic embolization. 2.0 - 3.0 for patients with tissue heart valves. 2.5 - 3.5 for patients with mechanical heart valves or post NM. Pediatric (12 years and under): 1.5 - 3.0 Although the target range in children is not well established, INR values of 1.5 - 3.0 are recommended for most patients. Higher values have been used in children with prosthetic cardiac valves and hereditary clotting disorders. (<3 days) therapeutic ranges have not been established. Blood specimen (specimen) 11/12/2007 2:06 PM WOOD GLUER 11/12/2007 2:32 PM WOOD GLUER Narrative [facility] - 11/12/2007 2:47 PM WOOD GLUER fax results to Dr. Ancelmo Guidry [phone] us Ancelmo Guidry MD HEMATOLOGY ORDERABLES Final Res ult Performing Organization Address City/[facility]/ZIP Co de Phone Number [facility] [address] [place] [address] * CBC WITH DIFFERENTIAL (11/12/2007 2:06 PM WOOD GLUER) MCV 88.4 82.0 - 99.0 fL [facility] PLATELETS 236 140 - 350 K/uL [facility] HEMOGLOBIN 12.4 11.8 - 14.8 g/dL [facility] RDW 13.2 11.5 - 14.5 % [facility] WBC 6.0 4.0 - 9.8 K/uL [facility] MCH 28.8 27.2 - 32.6 pg [facility] MPV 11.7 9.3 - 12.4 fL [facility] HEMATOCRIT 38.0 35.5 - 44.0 % [facility] RDW-STDEV 42.0 37.1 - 48.7 fL [facility] RBC 4.30 3.90 - 4.90 M/uL [facility] MCHC 32.6 31.5 - 35.5 % [facility] EOSINOPHILS 1 0 - 7 % [facility] EOSINOPHIL ABSOLUTE 0.05 0.00 - 0.70 K/uL [facility] LYMPHOCYTES 27 16 - 45 % [facility] LYMPHOCYTE ABSOLUTE 1.64 0.70 - 4.50 K/uL [facility] BASOPHILS 1 0 - 2 % [facility] BASOPHILS ABSOLUTE 0.05 0.00 - 0.20 K/uL [facility] MONOCYTES 6 3 - 13 % [facility] MONOCYTE ABSOLUTE 0.35 0.10 - 1.30 K/uL [facility] NEUTROPHILS 65 45 - 70 % [facility] NEUTROPHIL ABSOLUTE 3.92 1.90 - 7.00 K/uL [facility] Blood specimen (specimen) 11/12/2007 2:06 PM WOOD GLUER 11/12/2007 2:32 PM WOOD GLUER Narrative INTERFACE SYSTEM - 11/12/2007 6:55 PM WOOD GLUER results faxed 11/12/07 6:55 PM dl us Ancelmo Guidry MD HEMATOLOGY ORDERABLES Edited INTERFACE SYSTEM Refer to clinic/hospital department [facility] [address] [place] [address] documented in this encounter Visit Diagnoses Not on filedocumented in this encounter Care Teams Form Builder Relationship Specialty Start Date End Date Christopher Crenshaw MD [address] [place] [address] PCP - General 01/29/06 documented as of this encounter
--- OUTSIDE RECORDS SUMMARY | 2025-04-02 10:19 | XMS_ITS | Encounter Summary ---
Author Organization [facility] Address 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
--- OUTSIDE RECORDS SUMMARY | 2025-04-02 10:19 | XMS_ITS | Clinical Summary ---
Author Organization [facility] Address [address] [place] [address] Care Team Providers Care Stone Sandblaster Name Role Phone Rosy Andrade MD Primary Care Provider Source Comments [facility],non-owned Affiliates and Associated Physician Practices is amultiple site organization consisting of ambulatory clinics and hospital sitesin [place], [place], [place] and [place]. This disclosure is being madepursuant to the Care Everywhere program and may not contain all information available regarding this patient. Last updated 18.[facility] Allergies No known active allergies Medications * Be aware that medications may not be up to date on this document. Alwaysverify current medications with the patient. 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 (AF LURIA, FLUZONE TRIVALENT; 6MO+) (IIV3) 06/09/2010 INFLUENZA VACCINE 05/10/2018,07/10/2017 Influenza Intradermal 07/10/2017 TDAP (7yrs+) 09/09/2011 TETANUS 09/09/2011 Family History Medical History Relation Name Comments None Known Daughter Status: Alive Alcohol abuse Father Depression Father Elevated Lipids Father Hypertension Father Status: Alive Heart Disease Maternal Grandfather Anemia Maternal Grandmother CVA Maternal Grandmother Diabetes Maternal Grandmother Heart Disease Maternal Grandmother High Cholesterol Maternal Grandmother High Cholesterol Mother Status: Ali ve Heart Disease Paternal Grandfather Anemia Paternal Grandmother Cancer Paternal Grandmother breast Diabetes Paternal Grandmother Heart Disease Paternal Grandmother Tuberculosis Paternal Grandmother None Known Son Status: Alive Relation Name Status Comments Daughter Father Maternal Grandfather Maternal Grandmother Mother Paternal Grandfather Paternal Grandmother Son Social History Tobacco Use Types Packs/Day Years Used Date Smoking Tobacco: Never Smokeless Tobacco: Never Tobacco Cessation:Counseling Given: Not Answered Alcohol Use Standard Drinks/Week Comments Not Currently 0 (1 standard drink = 0.6 oz pur e alcohol) 1 every 6 months- wine Comments No Sex and Gender Information Value Date Recorded Sex Assigned at Not on file 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 Gender Identity Not on file Sexual Orientation Not on file Last Filed Vital Signs Vital Sign Reading Time Taken Comments Blood Pressure 138/81 03/11/2023 1:29 PM CDT Pulse 84 03/11/2023 1:29 PM CDT Temperature 36.2 C (97.2 F) 03/11/2023 1:29 PM CDT Respiratory Rate 19 02/20/2022 11:45 AM CDT Oxygen Saturation 99% 03/11/2023 1:29 PM CDT Inhaled Oxygen Concentration - - Weight 82.6 kg (182 lb) 03/11/2023 1:29 PM CDT Height 165.1 cm (5' 5) 03/11/2023 1:29 PM CDT Body Mass Index 30.29 03/11/2023 1:29 PM CDT Plan of Treatment Health Maintenance Due Date Last Done Comments COLOGUARD (AGES 45-75) - COLON CA SCREENING 1971 CT COLONOGRAPHY - COLON CA SCREENING 1970 FIT - COLON CA SCREENING 1970 FLEX SIG - COLON CA SCREENING 1971 MAMMOGRAM 1971 HIV SCREENING 1986 HEPATITIS C SCREENING 09/06/1989 HEPATITIS B VACCINE (1 of 3 - 19+ 3-dose series) 1990 PAP SMEAR 1992 LIPID TESTING 12/10/2019 12/09/2014 DTAP/TDAP/TD VACCINES (3 - Td or Tdap) 09/09/2021 09/09/2011, 09/09/2011 PNEUMOCOCCAL VACCINE 50+ (1 of 1 - PCV) 2021 ZOSTER VACCINE (1 of 2) 2021 COVID-19 VACCINE (2 - season) 2024 09/20/2020 DEPRESSION SCREENING 09/09/2024 INFLUENZA VACCINE (#1) 2025 8, 07/10/2017, 07/10/2017, Additional history exists SCREENING FOR DIABETES 03/11/2026 3, 01/22/2022, 01/23/2021, Additional history exists COLON MONITORING 02/21/2032 02/20/2022, 02/20/2022 COLONOSCOPY - COLON CA SCREENING 02/21/2032 02/20/2022, 02/20/2022 Colorectal Cancer Screening 02/21/2032 HIB VACCINE Aged Out No longer eligi ble based on patient's age to complete this topic HPV VACCINE Aged Out No longer eligi ble based on patient's age to complete this topic MENINGOCOCCAL (Group B) VACCINE SHARED DECISION-MAKING Aged Out No longer eligible based on patient's age to complete this topic MENINGOCOCCAL GROUPS A/C/Y/W VACCINE Aged Out No longer eligible based on patient's age to complete this topic Goals Goal Patient Goal Type Associated Problems Recent Progress Patient-Stated? Author Medication Management General On track( 023 1:27 PM CDT) Rowdy Casas RN Note: Expected end date: Interventions: Take all medications as prescribed Let your doctor know right away about any changes in your medications Make sure to request a refill of your medication at least one week prior to your last dose Procedures Procedure Name Priority Date/Time Associated Diagnosis Comments COMPREHENSIVE METABOLIC PANEL Routine 03/11/2023 1:18 PM CDT Budd-Chiari syndrome ENDOSCOPY, COLON, SCREENING Routine 02/20/2022 10:40 AM CDT LIPID PROFILE Routine 12/09/2014 8:23 AM CDT from Last 3 Months or Most Recently Relevant to Health Maintenance Results * (ABNORMAL) COMPREHENSIVE METABOLIC PANEL (03/11/2023 1:18 PM CDT) BUN 13 7 - 26 mg/dL 03/11/2023 2:03 PM [facility] Creatinine 0.87 0.56 - 0.96 mg/dL 03/11/2023 2:03 PM [facility] Sodium 142 136 - 145 mmol/L 03/11/2023 2:03 PM [facility] Potassium 4.3 3.5 - 4.5 mmol/L 03/11/2023 2:03 PM [facility] Chloride 103 98 - 107 mmol/L 03/11/2023 2:03 PM [facility] CO2 30(H) 22 - 29 mmol/L 03/11/2023 2:03 PM [facility] Glucose 100 70 - 115 mg/dL 03/11/2023 2:03 PM [facility] Calcium 10.7(H) 8.4 - 10.2 mg/dL 03/11/2023 2:03 PM [facility] Protein Total 8.3 6.0 - 8.3 g/dL 03/11/2023 2:03 PM [facility] Albumin 4.9 3.4 - 5.0 g/dL 03/11/2023 2:03 PM [facility] Bilirubin Total 1.0 0.2 - 1.2 mg/dL 03/11/2023 2:03 PM [facility] Alkaline Phosphatase 66 40 - 150 U/L 03/11/2023 2:03 PM [facility] ALT 14 5 - 55 U/L 03/11/2023 2:03 PM [facility] AST 14 5 - 34 U/L 03/11/2023 2:03 PM [facility] Anion Gap 13 8 - 18 03/11/2023 2:03 PM [facility] BUN/Creatinine Ratio 15 7 - 23 03/11/2023 2:03 PM [facility] Osmolality Calculated 294 270 - 300 mOsm/kg 03/11/2023 2:03 PM [facility] Albumin/Globulin Ratio 1.4 1.1 - 2.3 03/11/2023 2:03 PM [facility] eGFR by CKD-EPI 81(L) >=90 mL/min/1.7 3 m2 03/11/2023 2:03 PM [facility] Blood BLOOD SPECIMEN / Unknown Lab Venipuncture / Unknown 03/11/2023 1:18 PM CDT 03/11/2023 1:35 PM CDT us Min Deutsch MD LAB - CHEMISTRY OR DERABLES Final Result Performing Organization Address City/State/[facility] Co de Phone Number [address] [address], [facility] [phone] * ENDOSCOPY, COLON, SCREENING (02/20/2022 10:40 AM CDT) Report Endoscopy POC Endoscopy Department Report _ Patient Name: Rajinder Pollock Procedure Date: 02/20/2022 10:40 AM Date of : 1970 Classification: Outpatient Gender: Female Ethnicity: Not or Race: White _ Providers: Min Garduno MD, Ny Mcclendon (Fellow) Referring MD: Rosy Andrade (Referring MD) Procedure: Colonoscopy Indications: Screening for colorectal malignant neoplasm Medications: Monitored Anesthesia Care Description of Procedure: Pre-Anesthesia Assessment: - Prior to the procedure, a History and Physical was performed, and patient medications and allergies were reviewed. The patient's tolerance of previous anesthesia was also reviewed. The risks and benefits of the procedure and the sedation options and risks were discussed with the patient. All questions were answered, and informed consent was obtained. ASA Grade Assessment: III - A patient with severe systemic disease. After reviewing the risks and benefits, the patient was deemed in satisfactory condition to undergo the procedure. After I obtained informed consent, the scope was passed under direct vision. Throughout the procedure, the patient's blood pressure, pulse, and oxygen saturations were monitored continuously. The Colonoscope was introduced through the anus and advanced to the terminal ileum. The colonoscopy was performed without difficulty. The patient tolerated the procedure well. The quality of the bowel preparation was good. The ileocecal valve, appendiceal orifice, and rectum were photographed. Findings: The perianal and digital rectal examinations were normal. A 10 mm polyp was found in the ascending colon. The polyp was sessile. The polyp was removed with a cold snare. Resection and retrieval were complete. A 13 mm polyp was found in the transverse colon. The polyp was sessile. The polyp was removed with a hot snare. Resection and retrieval were complete. The retroflexed view of the distal rectum and anal verge was normal and showed no anal or rectal abnormalities. Estimated Blood Loss: Estimated blood loss was minimal. Complications: No immediate complications. Impression: - One 10 mm polyp in the ascending colon, removed with a cold snare. Resected and retrieved. - One 13 mm polyp in the transverse colon, removed with a hot snare. Resected and retrieved. Recommendation: - Resume previous diet. - Continue present medications. - Await pathology results. - Repeat colonoscopy in 3 years for surveillance. Attending Participation: I was present and participated during the entire procedure, including non-solis portions. Procedure Code(s): --- Professional --- 11709, Colonoscopy, flexible; with removal of tumor(s), polyp(s), or other lesion(s) by snare technique Diagnosis Code(s): --- Professional --- Z12.11, Encounter for screening for malignant neoplasm of colon K63.5, Polyp of colon CPT copyright 2019 [employer]. All rights reserved. The codes documented in this report are preliminary and upon elementary school band director review may be revised to meet current compliance requirements. _ Min Garduno MD 02/20/2022 11:27:22 AM This report has been signed electronically. Note Initiated On: 02/20/2022 10:40 AM Number of Addenda: [id number] [place] [address] PROVATION 02/20/2022 10:4 0 AM CDT us Ny Mcclendon MD GI PROCEDURE ORDERABLES Edited Result - Final [facility] [employer] * LIPID PROFILE (12/09/2014 8:23 AM CDT) Cholesterol Total 119 <200 mg/dL [facility] HDL 44 >40 mg/dL [facility] Comment: ATP III Classification of HDL Cholesterol: <40 mg/dL: Considered a major risk factor. >60 mg/dL: Considered a negative risk factor. LDL Calculated 66 <100 mg/dL [facility] Comment: ATP III Classification of LDL Cholesterol: <100 mg/dL: Optimal 100 - 129 mg/dL: Near Optimal/Above Optimal 130 - 159 mg/dL: Borderline High 160 - 189 mg/dL: High >190 mg/dL: Very High Triglycerides 44 <150 mg/dL [facility] Comment: ATP III Classification of Triglycerides: <150 mg/dL: Normal 150 - 199 mg/dL: Borderline High 200 - 400 mg/dL: High >500 mg/dL: Very High Blood specimen (specimen) BLOOD SPECIMEN / Unknown 12/09/2014 8:23 AM CDT 12/09/2014 9:26 AM CDT us Jacky Dean MD LAB - CHEMISTRY ORDERABL ES Final Result [address] [phone] from Last 3 Months or Most Recently Relevant to Health Maintenance Insurance [employer] Care Teams Stone Sandblaster Relationship Specialty Start Date End Date Rosy Andrade MD PCP - General 01/22/22
--- OUTSIDE RECORDS SUMMARY | 2025-04-02 10:19 | XMS_ITS | Encounter Summary ---
Author Organization [facility] Address 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 Gender Identity Not on file Sexual Orientation Not on file documented as of this encounter Plan of Treatment Not on file documented as of this encounter Procedures Procedure Name Priority Date/Time Associated Diagnosis Comments CANCER ANTIGEN 19-9 Routine 01/29/2006 3 :24 PM CDT ALPHA FETOPROTEIN TUMOR MARKER Routine 01/29/2006 3:24 PM CDT CBC WITH DIFFERENTIAL Routine 01/29/2006 3:24 PM CDT CBC WITH DIFFERENTIAL Routine 01/29/2006 3:24 PM CDT PROTIME-INR Routine 01/29/2006 3:24 PM CDT COMPREHENSIVE METABOLIC PANEL Routine 01/29/2006 3:24 PM CDT documented in this encounter Results * CANCER ANTIGEN 19-9 (01/29/2006 3:24 PM CDT) CA 19-9 16 <37 U/mL INTERFACE SYSTEM Comment: THIS TEST [...] OF MALIGNANT DISEASE. Lab test performed by: [id number] [id number] MIKO HERNANDEZ MD 01/29/2006 3:24 PM CDT us History Conversion CHEMISTRY ORDERABLES Final Re sult Performing Organization Address [facility] Phone Number INTERFACE SYSTEM Refer to clinic/hospital department * ALPHA FETOPROTEIN TUMOR MARKER (01/29/2006 3:24 PM CDT) Pathologist [facility] [place] ALPHA FETOPROTEIN TUMOR MARKER 1.6 ng/mL INTERFACE SYSTEM Comment: This test was performed using the [employer] Immulite 2000 Assay. REFERENCE RANGE: <6.1 THE USE OF AFP A TUMOR MARKER IN FEMALES IS NOT RECOMMENDED. Lab test performed by: [facility] [address] MIKO HERNANDEZ MD 01/29/2006 3:24 PM CDT us History Conversion CHEMISTRY ORDERABLES Final Re sult Performing Organization Address [facility] Phone Number INTERFACE SYSTEM Refer to clinic/hospital department * CBC WITH DIFFERENTIAL (01/29/2006 3:24 PM CDT) Pathologist [facility] [place] NEUTROPHILS 49 45 - 70 % INTERFAC E SYSTEM LYMPHOCYTES 41 16 - 45 % INTERFAC E SYSTEM MONOCYTES 6 3 - 13 % INTERFACE SYSTEM EOSINOPHILS 3 0 - 7 % INTERFAC E SYSTEM BASOPHILS 1 0 - 2 % INTERFACE SYSTEM NEUTROPHIL ABSOLUTE 3.25 1.90 - 7.00 K/uL INTERFACE SYSTEM LYMPHOCYTE ABSOLUTE 2.71 0.70 - 4.50 K/uL INTERFACE SYSTEM MONOCYTE ABSOLUTE 0.39 0.10 - 1.30 K/uL INTERFACE SYSTEM EOSINOPHIL ABSOLUTE 0.17 0.00 - 0.70 K/uL INTERFACE SYSTEM BASOPHILS ABSOLUTE 0.06 0.00 - 0.20 K/uL INTERFACE SYSTEM 01/29/2006 3:24 PM CDT us History Conversion HEMATOLOGY ORDERABLES Final R esult Performing Organization Address [facility] de Phone Number INTERFACE SYSTEM Refer to clinic/hospital department * CBC WITH DIFFERENTIAL (01/29/2006 3:24 PM CDT) WBC 6.6 4.0 - 9.8 K/uL INTERFACE SYSTEM RBC 4.62 3.90 - 4.90 M/uL INTERFACE SYSTEM HEMOGLOBIN 13.1 11.8 - 14.8 g/dL INTERFACE SYSTEM HEMATOCRIT 39.6 35.5 - 44.0 % INTERFACE SYSTEM MCV 85.7 82.0 - 99.0 fL INTERFACE SYSTEM MCH 28.4 27.2 - 32.6 pg INTERFACE SYSTEM MCHC 33.1 31.5 - 35.5 % INTERFACE SYSTEM RDW 13.0 11.5 - 14.5 % INTERFACE SYSTEM RDW-STDEV 41.0 37.1 - 48.7 fL INTERFACE SYSTEM PLATELETS 271 140 - 350 K/uL INTERFACE SYSTEM MPV 11.1 9.3 - 12.4 fL INTERFACE SYSTEM 01/29/2006 3:24 PM CDT us History Conversion HEMATOLOGY ORDERABLES Final R [facility] Performing Organization Address [place]/[facility] de Phone Number INTERFACE SYSTEM Refer to clinic/hospital department * PROTIME-INR (01/29/2006 3:24 PM CDT) PROTIME 14.6 12.7 - 15.1 Seconds INTERFACE SYSTEM INR 1.0 0.9 - 1.1 INTERFACE SYSTEM Comment: INR Therapeutic Range: Adult: 2.0 - 3.0 for pulmonary embolism or prophylaxis against venous thrombosis or systemic embolization. 2.0 - 3.0 for patients with tissue heart valves. 2.5 - 3.5 for patients with mechanical heart valves or post [place]. Pediatric (12 years and under): 1.5 - 3.0 Although the target range in children is not well established , INR values of 1.5 - 3.0 are recommended for most patients. Higher values have been used in children with prosthetic cardiac valves and hereditary clotting disorders. (<3 days) therapeutic ranges have not been established. 01/29/2006 3:24 PM CDT us History Conversion HEMATOLOGY ORDERABLES Final R esult Performing Organization Address [facility] Co de Phone Number INTERFACE SYSTEM Refer to clinic/hospital department * (ABNORMAL) COMPREHENSIVE METABOLIC PANEL (01/29/2006 3:24 PM CDT) [facility] GLUCOSE 83 65 - 99 mg/dL INTERFACE SYSTEM Comment:Note: Effective January 22, 2006, reference range now reflects a fasting st ate. CREATININE 0.9 0.4 - 1.2 mg/dL INTERFACE SYSTEM CALCIUM 9.5 8.6 - 10.2 mg/dL INTERFACE SYSTEM ALKALINE PHOSPHATASE 69 35 - 104 U/L INTERFACE SYSTEM AST 18 12 - 32 U/L INTERFACE SYSTEM ALT 16 0 - 31 U/L INTERFACE SYSTEM TOTAL PROTEIN 8.3 6.3 - 8.6 g/dL INTERFACE SYSTEM ALBUMIN 5.1(H) 3.4 - 4.8 g/dL INTERFACE SYSTEM BILIRUBIN TOTAL 1.3(H) 0.2 - 1.0 mg/dL INTERFACE SYSTEM BUN 13 6 - 20 mg/dL INTERFACE SYSTEM SODIUM 140 135 - 145 mmol/L INTERFACE SYSTEM POTASSIUM 3.9 3.5 - 4.9 mmol/L INTERFACE SYSTEM CHLORIDE 101 96 - 108 mmol/L INTERFACE SYSTEM CO2 31(H) 22 - 30 mmol/L INTERFACE SYSTEM RESULT COMMENT, CHEMISTRY INTERFACE SYSTEM Comment: Results faxed to 01/29/2006 3:24 PM CDT us History Conversion CHEMISTRY ORDERABLES Final Re sult Performing Organization Address [place]/[facility] Co de Phone Number INTERFACE SYSTEM Refer to clinic/hospital department documented in this encounter Visit Diagnoses Diagnosis Other abnormal blood chemistry- Primary documented in this encounter Care Teams Vending Machine Filler Relationship Specialty Start Date End Date Christopher Crenshaw MD [address] [place] [address] PCP - General 01/29/06 documented as of this encounter
--- OUTSIDE RECORDS SUMMARY | 2025-04-02 10:19 | XMS_ITS | Clinical Summary ---
Author Organization [facility] Address [address] [place] [id number] Care Team Providers Care Analyst Food [employer] Beverage Name Role Phone Unavailable Primary Care Provider Unavailabl e Immunizations Immunization Administration Dates Next Due MODERNA COVID-19 (12+) MRNA, LNP-S, PF, 100 MCG/ 0.5 ML DOSE 09/20/2020 Social History Tobacco Use Types Packs/Day Years Used Date Smoking Tobacco: Never Assessed Comments Unknown Sex and Gender Information Value Date Recorded Sex Assigned at Not on file Legal Sex Female 5:05 PM CDT Gender Identity Not on file Sexual Orientation Not on file Plan of Treatment Health Maintenance Due Date Last Done Comments Cervical Cancer Screening Pa p Smear (Age 30 to 64) Every 3 Years 1971 Colorectal Cancer Screening Colonoscopy (10 Years) 1971 Annual Physical 1974 Hepatitis C 1989 Hepatitis B Vaccines (1 of 3 - 19+ 3-dose series) 1990 Cervical Cancer Screening Pa p with HPV Testing (Age 30 to 64) Every 5 Years 2001 Cervical Cancer Screening with HPV 2001 Mammogram Screening 2011 DTaP, Tdap and Td Vaccines ( 2 - Td or Tdap) 09/09/2021 09/09/2011 Pneumococcal Vaccine: 50+ Ye ars (1 of 1 - PCV) 2021 Zoster Vaccines (1 of 2) 2021 COVID-19 Vaccine (2 - 2023-2 5 season) 2024 09/20/2020 Meningococcal B Vaccine Aged Out No l onger eligible based on patient's age to complete this topic Meningococcal Vaccine Aged Out No doris deena eligible based on patient's age to complete this topic RSV Immunizations Under 20 Months Aged Out No longer eligible based on patient's age to complete this topic Insurance [employer] OPEN ACCESS [facility]
== END 2025-04-02 10:16 | disposition home or self-care (01) ==
LOC: CHSIMG 10:17
PROVIDERS: PCP Nurse Practitioner Family; Visit Provider Nurse Practitioner Family
DX: Z12.31 Encounter for screening mammogram for malignant neoplasm of breast (principal)
CPT/HCPCS: 77063; 77067